=== PATIENT | male | born 1980 | race Caucasian/White ===

== ENCOUNTER 2022-05-24 10:42 | Emergency (ER) | payer OTHER, SELFPAY ==
[2022-05-24 10:48] VITALS: BP 138/84; PULSE 86; RESP 20; TEMP 36.7; O2SAT 98
--- NOTE | 2022-05-24 11:24 | ED.NAVMDI ---
HPI - Nausea/Vomiting/Diarrhea General Chief complaint: Nausea/Vomiting/Diarrhea Stated complaint: nausea and achey fatigue Time Seen by Provider: 05/24/22 11:15 Source: patient and RN notes reviewed History of Present Illness HPI Narrative: patient is a 42-year-old male who presents to urgent care with complaints of nasal congestion, chills, body aches and fatigue. Patient states that symptoms started last night. Patient denies any fevers. States that he took Sudafed and use Afrin nasal spray. No other acute complaints. No acute distress noted. Patient aware of the plan of care. Some parts of this dictation were generated by voice recognition software and may contain typographical and/or grammatical inaccuracies. Related Data Home Medications Medication Instructions Recorded Confirmed No Home Medications 05/24/22 05/24/22 Allergies Allergy/AdvReac Type Severity Reaction Status Date / Time No Known Allergies Allergy Verified 05/24/22 11:02 Review of Systems Review of Systems: CONSTITUTIONAL: reports of chills and fatigue EYES: Denies visual changes, redness, or discharge. ENT: Reports of nasal congestion CARDIOVASCULAR: Denies chest pain, palpitations, or edema. RESPIRATORY: Denies cough or dyspnea. GASTROINTESTINAL: Denies abdominal pain, nausea, vomiting, or diarrhea. GENITOURINARY: Denies dysuria or hematuria. SKIN: Denies rash or itching. MUSCULOSKELETAL: Denies back pain, joint pain. Reports body aches NEUROLOGIC: Denies headache, numbness, or weakness. All other systems reviewed are negative, except as documented in HPI. Exam Narrative: GENERAL: This is a well-nourished, well-developed patient,. Appears fatigued HEAD: normocephalic, atraumatic. EYES: PERRL. Sclera clear/white. Vision is grossly intact. EARS: External ears normal, auditory canals clear and without drainage, TMs normal without perforation. Hearing grossly intact. NOSE: External nose normal with no obvious nasal discharge, nares without redness, Clearrhinorrhea. THROAT: Mucous membranes moist, moderate erythema in the posterior pharynx with moderate postnasal drainage. NECK: Neck supple, non-tender without lymphadenopathy, masses or thyromegaly. CARDIOVASCULAR: Regular rate and rhythm without murmurs, gallops, or rubs. RESPIRATORY: Clear to auscultation. Breath sounds equal bilaterally. No wheezes, rales, or rhonchi. SKIN: slightly flushed.warm, intact with no suspicious lesions or rash, good texture and turgor. NEURO: awake, alert, and oriented to person, place and time. There were no obvious focal neurologic abnormalities. EXTREMITIES: No clubbing, cyanosis, or edema. Course Course Level of Care: Express Care Visit Vital Signs Vital signs: Vital Signs Temperature 98.0 F 05/24/22 10:48 Pulse Rate 86 05/24/22 10:48 Respiratory Rate 20 05/24/22 10:48 Blood Pressure 138/84 05/24/22 10:48 Pulse Oximetry 98 05/24/22 10:48 Oxygen Delivery Room Air 05/24/22 10:48 Temperature 98.0 F 05/24/22 10:48 Pulse Rate 86 05/24/22 10:48 Respiratory Rate 20 05/24/22 10:48 Blood Pressure 138/84 05/24/22 10:48 Pulse Oximetry 98 05/24/22 10:48 Oxygen Delivery Room Air 05/24/22 10:48 Reviewed MDM - Nausea/Vomiting/Diarrhea MDM Narrative Medical decision making narrative: reviewed lab results with the patient. He is aware that flu swab was negative. Advised patient to continue [id number] medication such as Zyrtec/ Claritin. May use Sudafed but would not recommend Sudafed for longer than 5 days. Watch your use of Afrin. Would recommend normal saline spray or Flonase. Increase water intake and rest. Use a humidifier at night. Follow-up with your PCP within 2-5 days or for worsening symptoms or failure to improve. Differential Diagnosis Differential diagnosis: Likely traveler's diarrhea, food poisoning, gastroenteritis, clostridium difficile infection and dehydration Lab Data [facility]
== END 2022-05-24 11:43 | disposition home or self-care (01) ==
PROVIDERS: Emergency Provider Nurse Practitioner Family; PCP Internal Medicine
DX: B34.9 Viral infection, unspecified (principal)
CPT/HCPCS: 87804; 99203; G0463